=== PATIENT | female | born 1950 | race Caucasian/White ===

== ENCOUNTER 2020-09-11 13:44 | Outpatient (CLI) | payer MEDICARE, OTHER | END 2020-09-11 13:45 | disposition home or self-care (01) | LOC: SCSMRI 13:44 | PROVIDERS: ATTEND Orthopaedic Surgery | DX: S46.911A Strain of unspecified muscle, fascia and tendon at shoulder and upper arm level, right arm, initial encounter (principal); M75.121 Complete rotator cuff tear or rupture of right shoulder, not specified as traumatic; S43.431A Superior glenoid labrum lesion of right shoulder, initial encounter; M75.81 Other shoulder lesions, right shoulder ==

== ENCOUNTER 2023-04-25 17:48 | Emergency (ER) | payer MEDICARE, OTHER ==
[~2023-04-25 17:48] MED LIST: Iopamidol-370 76% 500 ML MDV (1 ML CHARGE) ONE
== END 2023-04-25 21:00 | disposition home or self-care (01) ==
LOC: ERS 17:48
DX: K92.1 Melena (principal); E11.9 Type 2 diabetes mellitus without complications; R19.7 Diarrhea, unspecified; E78.5 Hyperlipidemia, unspecified
CPT/HCPCS: 36415; 74177; 80053; 81001; 82274; 83605; 83690; 85025; 96360; 96361; Q9967